=== PATIENT | male | born 1945 | race Caucasian/White ===

== ENCOUNTER → 2017-06-24 | Outpatient (CLI) | payer MEDICARE, BC ==
[~2017-06-24] MED LIST: ABILIFY2 MG ORAL; ACETAMINOPHEN650 M2 ORAL; BENZTROPINE MESY1 MG PO; DESONIDE59 ML TP; FLOMAX0.4 MG ORAL; KETOCONAZOLE15 GM TOP; KLONOPIN0.5 MG ORAL; LOMOTIL TABLET1 EACH ORAL; LORATADINE10 M2 PO; MILK OF MA400 MG/51 ORAL; PAROXETINE HCL20 MG PO; QUESTRAN POWDER4 GM ORAL; SARNA SENSITIV222 ML TP; TRAZODONE HCL50 MG PO; TRIHEXYPHEN2 MG/5 ML ORAL; TRIHEXYPHENIDYL2 MG ORAL; TUMS500 MG ORAL; VESICARE5 MG ORAL; VITAMIN D3-ALO1 EACH PO; ZOFRAN8 MG ORAL; [UNRECOGNIZED DRUG - OTHER] TP
[2017-06-24 14:16] LABS: EOSINOPHILS % (AUTO) 1.3 % (0.0-3.0); HEMOGLOBIN 14.2 G/DL (14.2-18.0); LYMPHOCYTES % (AUTO) 25.6 % (20.0-45.0); MEAN CORPUSCULAR VOLUME 97 FL (80-99); MONOCYTES % (AUTO) 10.8 % (1.0-10.0); NEUTROPHILS % (AUTO) 61.3 % (45.0-75.0); PLATELET COUNT 182 K/UL (150-450); RED BLOOD COUNT 4.14 M/UL (4.70-6.10)
[2017-06-24 14:55] LABS: ALANINE AMINOTRANSFERASE 36 U/L (12-78); ALBUMIN 3.4 G/DL (3.4-5.0); ALBUMIN/GLOBULIN RATIO 0.9 (1.0-2.7); ALKALINE PHOSPHATASE 74 U/L (46-116); ANION GAP 6 mmol/L (5-15); ASPARTATE AMINO TRANSFERASE 28 U/L (15-37); BLOOD UREA NITROGEN 21 mg/dL (7-18); CALCIUM 9.4 MG/DL (8.5-10.1); CARBON DIOXIDE 30 MMOL/L (21-32); CHLORIDE 104 MMOL/L (98-107); CREATININE 1.1 MG/DL (0.55-1.30); POTASSIUM 4.3 MMOL/L (3.5-5.1); SODIUM 140 MMOL/L (136-145)
--- NOTE | 2017-06-26 11:56 | Cardiology Report ---
APPROVED REPORT EKG Measurement Heart [id number] Normal sinus rhythm Right bundle branch block Left anterior fascicular block Bifascicular block Moderate voltage criteria for LVH, may be normal variant Abnormal ECG
== END | disposition home or self-care (01) ==
LOC: LAB 13:15
DX: R00.0 Tachycardia, unspecified (principal); I45.2 Bifascicular block
CPT/HCPCS: 36415; 80053; 84443; 85025; 93005

== ENCOUNTER 2017-09-12 13:24 | Outpatient (CLI) | payer MEDICARE, BC ==
[2017-09-12 14:26] LABS: APPEARANCE,URINE CLEAR; BILIRUBIN, URINE NEGATIVE (NEGATIVE); GLUCOSE, URINE (UA) NEGATIVE (NEGATIVE); HEMATOCRIT 43.1 % (42.0-52.0); HEMOGLOBIN 14.2 G/DL (14.2-18.0); KETONES,URINE NEGATIVE (NEGATIVE); LEUKOCYTE ESTERASE ,URINE 1+ (NEGATIVE); MEAN CORPUSCULAR VOLUME 96 FL (80-99); NITRITE,URINE NEGATIVE (NEGATIVE); PH,URINE 6 (4.5-8.0); PLATELET COUNT 160 K/UL (150-450); PROTEIN,URINE NEGATIVE (NEGATIVE); RED BLOOD COUNT 4.51 M/UL (4.70-6.10); RED CELL DISTRIBUTION WIDTH 10.9 % (11.6-14.8); UROBILINOGEN,URINE 1 MG/DL (0.0-1.0); WHITE BLOOD COUNT 5.8 K/UL (4.8-10.8)
--- NOTE | 2017-09-12 14:34 | Diagnostic Imaging Report ---
Indication: Cough Technique: XRAY Chest 2v Comparison: 05/09/2012 Findings: Heart size and mediastinal contours within normal limits and stable compared to the prior exam. There is no focal airspace consolidation, pleural effusion or pneumothorax. There is mild scoliosis and degenerative change of the spine. No acute osseous abnormality. IMPRESSION: No radiographic evidence of acute cardiopulmonary disease. Specifically, no focal consolidation as questioned clinically.
[2017-09-12 14:42] LABS: ANION GAP 7 mmol/L (5-15); BLOOD UREA NITROGEN 17 mg/dL (7-18); CALCIUM 8.8 MG/DL (8.5-10.1); CARBON DIOXIDE 28 MMOL/L (21-32); CHLORIDE 103 MMOL/L (98-107); COLOR,URINE YELLOW; CREATININE 1.1 MG/DL (0.55-1.30); POTASSIUM 4.2 MMOL/L (3.5-5.1); SODIUM 138 MMOL/L (136-145)
[2017-09-13] MEDS ORDERED: UNOBMED (13:04)
== END 2017-09-12 15:24 | disposition home or self-care (01) ==
LOC: RAD 13:24
DX: R00.0 Tachycardia, unspecified (principal)
CPT/HCPCS: 36415; 71046; 80048; 81001; 85007; 85025; 87086

== ENCOUNTER 2017-09-13 12:53 | Emergency (ER) | payer MEDICARE, BC ==
[~2017-09-13] VITALS: Ht 182.9 cm; Wt 101.6 kg
[2017-09-13] MEDS ORDERED: UNOBMED (13:04)
[2017-09-13 13:13] VITALS: BP 109/62
--- NOTE | 2017-09-13 14:17 | Emergency Room Report ---
History of Present Illness General Chief Complaint: Upper Respiratory Illness Source: Patient Present Illness HPI This patient c/o 5-6 days of viral URI symptoms including sore throat, rhinitis , nasal congestion, non productive cough. Malaise, myalgias, possibly tactile fever. The patient has no vomiting, chest pain or SOB. No travel history, leg pain/swelling. Was here yesterday for same. He is an anxious person. No trauma, no fever, no shortness of breath, no chest pain, no nausea, no vomiting, no diarrhea, no abdominal pain, no syncope, LOC, dizziness, lightheadedness, headache. Allergies: Coded Allergies: SULFA (SULFONAMIDE ANTIBIOTICS) (Verified Allergy, Unknown, 12/03/15) Review of Systems Constitutional: Denies: fever Eye: Denies: acuity changes ENT: Reports: see HPI Respiratory: Denies: cough, shortness of breath Cardiovascular: Denies: chest pain Gastrointestinal: Denies: nausea, vomiting Skin: Denies: rash Neurological: Denies: headache Physical Exam Vital Signs Date Time Temp Pulse Resp B/P (MAP) Pulse Ox O2 Delivery O2 Flow Rate FiO2 09/13/17 13:00 99.2 94 18 118/71 93 Room Air 99.1 General Appearance: well appearing, no apparent distress Head: normocephalic, atraumatic ENT: hearing grossly normal, normal voice Neck: full range of motion, supple Respiratory: no respiratory distress, speaking full sentences Musculoskeletal: no calf tenderness Neurologic: alert, normal gait Psychiatric: mood/affect normal Skin: no rash Medical Decision Making Diagnostic Impression: Primary Impression: Upper respiratory infection ER Course advised to use OTC Robitussin DM CXR yesterday negative. no abnorm on PE today Last Vital Signs Date Time Temp Pulse Resp B/P (MAP) Pulse Ox O2 Delivery O2 Flow Rate FiO2 09/13/17 13:13 99.1 87 25 109/62 95 Room Air 99.1 Disposition: HOME, SELF-CARE Condition: Stable Referrals: NON PHYSICIAN (PCP) Patient Instructions: Upper Respiratory Infection, Adult Nilesh Reyes M.D. Sep 13, 2017 14:17
[2017-09-13 14:48] VITALS: BP 124/66
[2017-09-13 15:00] VITALS: BP 124/66
== END 2017-09-13 15:08 | disposition home or self-care (01) ==
LOC: EMR 13:40
DX: J06.9 Acute upper respiratory infection, unspecified (principal); Z88.2 Allergy status to sulfonamides
CPT/HCPCS: 99282

== ENCOUNTER → 2018-01-20 | Outpatient (CLI) | payer MEDICARE, BC ==
[~2018-01-20] MED LIST changes: +BENZTROPINE ME0.5 MG PO; +UNOBMED
[2018-01-20 15:56] LABS: BASOPHILS % (AUTO) 0.8 % (0.0-2.0); EOSINOPHILS % (AUTO) 1.8 % (0.0-3.0); HEMATOCRIT 41.9 % (42.0-52.0); HEMOGLOBIN 14.4 G/DL (14.2-18.0); MEAN CORPUSCULAR VOLUME 93 FL (80-99); MONOCYTES % (AUTO) 8.4 % (1.0-10.0); PLATELET COUNT 210 K/UL (150-450); RED BLOOD COUNT 4.51 M/UL (4.70-6.10); RED CELL DISTRIBUTION WIDTH 10.8 % (11.6-14.8); WHITE BLOOD COUNT 7.1 K/UL (4.8-10.8)
[2018-01-20 15:58] LABS: ANION GAP 7 mmol/L (5-15); BLOOD UREA NITROGEN 19 mg/dL (7-18); CALCIUM 9.4 MG/DL (8.5-10.1); CARBON DIOXIDE 30 MMOL/L (21-32); CHLORIDE 104 MMOL/L (98-107); CREATININE 1.1 MG/DL (0.55-1.30); POTASSIUM 4.5 MMOL/L (3.5-5.1); SODIUM 141 MMOL/L (136-145)
== END | disposition home or self-care (01) ==
LOC: LAB 15:10
DX: F42.2 Mixed obsessional thoughts and acts (principal)
CPT/HCPCS: 36415; 80048; 85025; 93005

== ENCOUNTER 2018-05-10 07:43 | Inpatient (IN) | payer MEDICARE, BC ==
[~2018-05-10] VITALS: Ht 180.3 cm; Wt 92.1 kg
[~2018-05-10 07:43] MED LIST changes: +ADVANCED ANTAC355 ML ORAL; +ALEVE220 M2 PO; +ASPERCREME 1035.4 GM TP; +ATROPINE SULFAT15 ML RIGHT EYE; +EUCERIN CREAM15 GM TOPIC; +LOPERAMIDE2 M1 PO; +ROBAFEN-DM SYR118 ML PO; +VITAMIN D1000 UNI1 ORAL
[2018-05-10 08:00] VITALS: BP 116/71
--- NOTE | 2018-05-10 08:00 | NUR ---
ED Nurse Note: pt walked in to ER due to prolong period of diarrhea. pt is scheduled for coloscopy tomorrow. pt aao x4 and skin clean and intact. per pt, he has had N/V/D for a couple of months but getting better. N/V stopped a month ago and last diarrhea was 3 days ago. currently pt denied pain. VSS.
--- NOTE | 2018-05-10 08:04 | Emergency Room Report ---
History of Present Illness General Chief Complaint: Diarrhea Source: Patient, Medical Record Present Illness HPI Patient has a history of OCD and GERD. Patient has been experiencing severe diarrhea over last couple weeks. He is associated some abdominal discomfort and cramping. Patient denies any fever chest pain or shortness of breath. Patient does have a caregiver. Patient presents emergency department as referral from the primary care physician for evaluation and admission. Is felt the patient might require colonoscopy. Symptoms noted to be moderate to severe.No other modifying factors. No other associated signs and symptoms. No other complaints were noted. Allergies: Coded Allergies: SULFA (SULFONAMIDE ANTIBIOTICS) (Verified Allergy, Unknown, 12/03/15) Patient History Past Medical History: GERD, psych hx Past Surgical History: none Pertinent Family History: none Social History: Denies: smoking, alcohol use, drug use Reviewed Nursing Documentation: PMH: Agreed; PSxH: Agreed Nursing Documentation-PMH Past Medical History: No History, Except For Hx Gastrointestinal Problems: Yes - GERD History Of Psychiatric Problem: Yes Review of Systems All Other Systems: negative except mentioned in HPI Physical Exam Vital Signs Date Time Temp Pulse Resp B/P (MAP) Pulse Ox O2 Delivery O2 Flow Rate FiO2 05/10/18 07:45 98.1 87 18 116/71 98 Room Air Sp02 EP Interpretation: reviewed, normal General Appearance: normal inspection, well appearing, no apparent distress, alert Head: atraumatic Eyes: bilateral eye normal inspection ENT: normal ENT inspection, hearing grossly normal, normal voice Neck: normal inspection, full range of motion, supple, no bony tend Respiratory: normal inspection, lungs clear, normal breath sounds, no respiratory distress, no retraction, no wheezing Cardiovascular #1: regular rate, rhythm, no edema Gastrointestinal: normal inspection, normal bowel sounds, non tender, soft, no guarding, no hernia Genitourinary: no CVA tenderness Musculoskeletal: normal inspection, back normal, normal range of motion Neurologic: normal inspection, alert, responsive, speech normal Psychiatric: normal inspection, judgement/insight normal, mood/affect normal Skin: normal inspection, normal color, no rash Medical Decision Making Diagnostic Impression: Primary Impression: Abdominal pain Additional Impression: Diarrhea ER Course Patient presents emergency department today complaint 2 weeks of worsening diarrhea. Differential considerations include a electrolyte abnormality, colitis, infectious etiology just name a few.Given the severity of the patient' s presentation I felt this is a highly complex patient. This patient required extensive workup. Is laboratory workup was not impressive. However given patient's trunk symptoms case was discussed with Dr. Mina Nix who knows the patient well. He recommended patient be admitted. And evaluated by GI physician Dr. Godfrey. Dr. Godfrey saw the patient in emergency department. We'll admit patient to [facility] per primary care physician and GI specialist request. We'll obtain preop laboratory results.As patient will likely require colonoscopy. Labs Test 05/10/18 08:10 05/10/18 08:40 White Blood Count 6.1 K/UL (4.8-10.8) Red Blood Count 3.90 M/UL (4.70-6.10) Hemoglobin 12.6 G/DL (14.2-18.0) Hematocrit 37.3 % (42.0-52.0) Mean Corpuscular Volume 96 FL (80-99) Mean Corpuscular Hemoglobin 32.1 PG (27.0-31.0) Mean Corpuscular Hemoglobin Concent 33.6 G/DL (32.0-36.0) Red Cell Distribution Width 11.4 % (11.6-14.8) Platelet Count 231 K/UL (150-450) Mean Platelet Volume 5.4 FL (6.5-10.1) Neutrophils (%) (Auto) 63.6 % (45.0-75.0) Lymphocytes (%) (Auto) 21.5 % (20.0-45.0) Monocytes (%) (Auto) 11.3 % (1.0-10.0) Eosinophils (%) (Auto) 2.3 % (0.0-3.0) Basophils (%) (Auto) 1.3 % (0.0-2.0) Prothrombin Time 10.9 SEC (9.30-11.50) Prothromb Time International Ratio 1.0 (0.9-1.1) Activated Partial Thromboplast Time 29 SEC (23-33) Sodium Level 140 MMOL/L (136-145) Potassium Level 4.0 MMOL/L (3.5-5.1) Chloride Level 103 MMOL/L (98-107) Carbon Dioxide Level 27 MMOL/L (21-32) Anion Gap 10 mmol/L (5-15) Blood Urea Nitrogen 20 mg/dL (7-18) Creatinine 1.1 MG/DL (0.55-1.30) Estimat Glomerular Filtration Rate mL/min (>60) Glucose Level 97 MG/DL (74-106) Calcium Level 9.4 MG/DL (8.5-10.1) Total Bilirubin 0.9 MG/DL (0.2-1.0) Aspartate Amino Transf (AST/SGOT) 14 U/L (15-37) Alanine Aminotransferase (ALT/SGPT) 22 U/L (12-78) Alkaline Phosphatase 80 U/L (46-116) Total Protein 7.0 G/DL (6.4-8.2) Albumin 3.2 G/DL (3.4-5.0) Globulin 3.8 g/dL Albumin/Globulin Ratio 0.8 (1.0-2.7) Lipase 66 U/L (73-393) Urine Color Pale yellow Urine Appearance Clear Urine pH 5 (4.5-8.0) Urine Specific [place] 1.015 (1.005-1.035) Urine Protein Negative (NEGATIVE) Urine Glucose (UA) Negative (NEGATIVE) Urine Ketones Negative (NEGATIVE) Urine Blood Negative (NEGATIVE) Urine Nitrite Negative (NEGATIVE) Urine Bilirubin Negative (NEGATIVE) Urine Urobilinogen Normal MG/DL (0.0-1.0) Urine Leukocyte Esterase Negative (NEGATIVE) EKG Diagnostic Results Rate: normal Rhythm: NSR ST Segments: no acute changes Rhythm Strip Diag. Results EP Interpretation: yes Rate: 79 Rhythm: NSR, no PVC's, no ectopy Last Vital Signs Date Time Temp Pulse Resp B/P (MAP) Pulse Ox O2 Delivery O2 Flow Rate FiO2 05/10/18 07:45 98.1 87 18 116/71 98 Room Air Status: improved Disposition: ADMITTED INPATIENT Condition: Serious Damon Cardona MD May 10, 2018 08:04
--- NOTE | 2018-05-10 08:20 | NUR ---
ED Nurse Note: Dr Nix called ER and spoke to Dr Cardona regarding the pt's status and admitting request.
[2018-05-10 08:26] LABS: BASOPHILS % (AUTO) 1.3 % (0.0-2.0); EOSINOPHILS % (AUTO) 2.3 % (0.0-3.0); HEMATOCRIT 37.3 % (42.0-52.0); HEMOGLOBIN 12.6 G/DL (14.2-18.0); LYMPHOCYTES % (AUTO) 21.5 % (20.0-45.0); MEAN CORPUSCULAR VOLUME 96 FL (80-99); MONOCYTES % (AUTO) 11.3 % (1.0-10.0); NEUTROPHILS % (AUTO) 63.6 % (45.0-75.0); PLATELET COUNT 231 K/UL (150-450); RED CELL DISTRIBUTION WIDTH 11.4 % (11.6-14.8); WHITE BLOOD COUNT 6.1 K/UL (4.8-10.8)
[2018-05-10] MEDS ORDERED: mylanta (08:29)
[2018-05-10] MEDS ORDERED: SARNA ANTI-ITC222 ML TP (08:29)
[2018-05-10] MEDS ORDERED: ASPERCREME 1035.4 GM TP (08:29)
[2018-05-10] MEDS ORDERED: ALEVE220 M2 PO (08:29)
--- NOTE | 2018-05-10 08:30 | NUR ---
ED Nurse Note: Pt and Kay at bedside was informed that pt will be transferred to [facility] unit when room is available and belonging list was signed by pt.
[2018-05-10 08:31] LABS: ANION GAP 10 mmol/L (5-15); BLOOD UREA NITROGEN 20 mg/dL (7-18); CALCIUM 9.4 MG/DL (8.5-10.1); CARBON DIOXIDE 27 MMOL/L (21-32); CHLORIDE 103 MMOL/L (98-107); CREATININE 1.1 MG/DL (0.55-1.30); SODIUM 140 MMOL/L (136-145)
[2018-05-10 08:37] LABS: ALANINE AMINOTRANSFERASE 22 U/L (12-78); ALBUMIN 3.2 G/DL (3.4-5.0); ALBUMIN/GLOBULIN RATIO 0.8 (1.0-2.7); ALKALINE PHOSPHATASE 80 U/L (46-116); ASPARTATE AMINO TRANSFERASE 14 U/L (15-37); BILIRUBIN,TOTAL 0.9 MG/DL (0.2-1.0)
[2018-05-10 08:58] LABS: APPEARANCE,URINE CLEAR; BILIRUBIN, URINE NEGATIVE (NEGATIVE); COLOR,URINE PALE YELLOW; GLUCOSE, URINE (UA) NEGATIVE (NEGATIVE); KETONES,URINE NEGATIVE (NEGATIVE); LEUKOCYTE ESTERASE ,URINE NEGATIVE (NEGATIVE); NITRITE,URINE NEGATIVE (NEGATIVE); PH,URINE 5 (4.5-8.0); PROTEIN,URINE NEGATIVE (NEGATIVE); UROBILINOGEN,URINE NORMAL MG/DL (0.0-1.0)
--- NOTE | 2018-05-10 09:20 | NUR ---
ED Nurse Note: Kay left and pt started getting anxious. pt is calling somebody and yelling. will monitor for behavior. pt stated "No one cares about me!!" pt was redirected to the reality.
--- NOTE | 2018-05-10 09:50 | NUR ---
ED Nurse Note: Pt's ex- called and yelled at nurse as stating "How come nobody told him what's going on and where he is? he is so anxious!" Nurse explained to ex- that pt was told and updated for his status and he verbalized understanding. He became anxious and started saying "Everyone left me and nobody cares about me." The ex- yelled and verbally aggressive toward nurse. she calm down little bit after getting explained and hung up.
[2018-05-10 10:00] VITALS: BP 112/78
--- NOTE | 2018-05-10 10:10 | NUR ---
ED Nurse Note: Attempted to give report. nurse was not available. will try again.
--- NOTE | 2018-05-10 10:20 | NUR ---
ED Nurse Note: attempted to give report. nurse is not available at this moment. will try again.
--- NOTE | 2018-05-10 10:47 | NUR ---
ED Nurse Note: report given to STEPHANIA Pritchard including medication Clenpiq to drink for colonoscopy tomorrow. pt left with belongings and Clenpiq in stable condition with [address].
[2018-05-10 12:00] VITALS: BP 108/76
[2018-05-10] MEDS ORDERED: Potassium Chloride 10 MEQ in D5 1/2NS 1,000 ML IV SCH (12:00)
[2018-05-10] MEDS ORDERED: TraZODone 50mg tab ORAL PRN (14:00)
[2018-05-10] MEDS: D5 1/2NS 1,000 ML IV SCH ×3 (14:09→18:30)
[2018-05-10] MEDS: CLENPIQ ORAL SCH ×2 (14:26→21:31)
--- NOTE | 2018-05-10 15:00 | NUR ---
NURSE NOTES: RECEIVED ORDERS FROM DR ALAMO. READ ALL MEDICATIONS AND CONFIRMED WITH DR ALAMO TO CONTINUE HOME MEDS. PT IS FORGETFUL. HAS EX- [employer] CONSERVATOR. WILL FAX CONSERVATOR PAPERWORK. RN EDUCATED CONSERVATOR REGARDING DR ROCHA'S ORDERS AND AGREED TO EGD AND COLONOSCOPY WITH POSSIBLE BIOPSY, POLYPECTOMY, AND HEMOSTASIS.
[2018-05-10 16:00] VITALS: BP 114/83
--- NOTE | 2018-05-10 16:40 | History & Physical ---
History and Physical History & Physicial Patient Identification: Patient with several months of increased gastrointestinal symptoms. Outpatient evaluation by Dr. Godfrey unremarkable. Because of constant c/o GERD symptoms and diarrhea with cramps, patient admitted for further evaluation. History of Present Illness: Mr. Dill is a 72-year-old gentleman who has had increasing complaints of abdominal cramping and recurrent diarrhea over the last several months. Initial evaluation failed to reveal specific etiology but because of the persistence of the symptoms the patient was referred to Dr. Anthony Godfrey. Once again outpatient workup was not revealing as to the etiology of the patient 's symptoms and therefore the patient was admitted for further evaluation and treatment. The patient does have a history of significant psychiatric disease including anxiety and obsessive-compulsive disorder. In the past, he has had episodes of stool incontinence and loose stools with prior negative gastrointestinal evaluation, leading to the consideration of a functional disorder. However he is not undergone colonoscopy for approximately 5 years or more and given the severity of his symptoms it is felt that more aggressive evaluation was warranted at this time. It is difficult to obtain a detailed history from Mr. Dill, because his obsessive-compulsive disorder and anxiety leading him to tangential and circumloquacious responses. However he is catalog of symptoms includes recurrent nausea, abdominal cramping in all quadrants of the abdomen, and recurrent diarrhea with episodes of stool incontinence. However an accurate timeline or quantification is not available. Likewise because Mr. Dill is a fairly independent resident and his RCFE, the staff there is not fully able to describe what his functional status is, since he performs a lot of his activities independently and then reports the results to the staff. When seen today, Mr. Dill is lying without apparent distress in bed. He is spontaneously launches into his left knee of complaints and a repetitive description of his multiple symptoms and concerns. Past Medical History: 1. Mild cognitive impairment with element of pseudodementia associated with underlying psychiatric disease. 2. Major depression, anxiety, obsessive-compulsive disorder with a possible component of underlying psychosis. 3. History of possible full functional gastrointestinal disorder. 4. History of borderline hepatomegaly. 5. History of colonic tubular adenoma in the transverse colon. 6. Hyperlipidemia. 7. 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 8. History of prostatism. 9. Gait disorder with broad-based gait. 10. History of bilateral knee surgery. Medications: 1. Abilify 2 mg daily. 2. Cogentin 1 mg daily. 3. Paxil 40 mg daily. 4. Tamsulosin 0.4 mg nightly. 5. Trazodone 50 mg nightly as needed. 6. Vesicare 5 mg every evening. 7. Vitamin D3 2000 units daily. 8. Clonazepam 0.25 milligrams twice daily. 9. Potassium chloride 20 mEq every other day. 10. Acetaminophen 650 mg every 3 hours as needed. 11. Calcium carbonate 500 mg 2 tablets 4 times daily as needed. 12. Lomotil 1 tablet 3 times daily as needed. 13. Loratadine 10 mg daily as needed. 14. Ondansetron 8 mg every 8 hours as needed. 15. Mylanta 30 mL 4 times daily as needed. Allergies: Reportedly to sulfonamides. 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 He was practicing until the time he experienced a psychiatric decompensation which required hospitalization. His ex -spouse is his conservator and surrogate decision-maker. He has 2 children. He lives at the [facility]. There is no significant tobacco or alcohol use history. Family History: Family history of obsessive compulsive disorder. Review of Systems: Detailed review of systems is not possible because of the patient's psychiatric disease. He complains of pain throughout his body including the limbs and the abdomen but has difficulty specifying the exact location and severity. He denies respiratory difficulties at this time. He does not have symptoms suggesting chest pain associated with cardiac disease or palpitations. He complains of nausea and recurrent abdominal cramping again with difficulty specifying the details. Physical Examination: Height 180 cm, weight 92.9 kg. Blood pressure 114/83, heart rate 73 and regular, respiratory rate 20, oxygen saturation 98% on room air, temperature 97.7. Generally patient is a well-developed well-nourished gentleman not in apparent distress speaking rapidly with restorations of his various concerns. Head and neck exam: Normocephalic atraumatic skull sclera and conjunctive are anicteric oropharynx is benign. Neck reveals normal range of motion with no apparent mass. Chest exam: Normal breath sounds. Cardiac exam: Regular rhythm without gallops murmurs or rubs appreciated. Abdominal exam: Normal bowel sounds. The abdomen is soft and nontender without masses or organomegaly appreciated. Extremity exam: Trace distal dependent edema without cords. Neurologic exam: Follows commands. No definite focality noted. Gait not tested. Mental status compatible with baseline. Laboratory: WBC 6.1 hematocrit 37.3% MCV 96 platelet count 231. INR 1.0 PTT 29 sodium 140 potassium 4.0 chloride 103 bicarb 27 BUN 20 creatinine 1.1 glucose 97 calcium 9.4 total bilirubin 0.9 AST 14 ALT 22 alkaline phosphatase 80 total protein 7.0 albumin 3.2 lipase 66. Urinalysis unremarkable. Impression/Plan: 1. Mr. Rivera is initial examination and laboratory studies are unremarkable. He has been seen as an outpatient by Dr. Elver Cuellar, and cleared from a cardiologic point of view. 2. Recurrent complaints of abdominal cramping and diarrhea along with nausea may well be functional but given the persistence and severity the patient will be evaluated by Dr. Godfrey, who is indicated he is likely to proceed with endoscopy and colonoscopy to rule out an anatomic lesion. As a result the patient will be placed on clear liquids and then kept n.p.o. after midnight and hydrated with IV fluids. 3. Additional evaluation will be pursued depending on the patient's symptomatology and additional findings on examination. 4. Situation has been discussed with Maritza patient's ex-spouse and conservator , who agrees with the current approach. Mina Nix MD May 10, 2018 16:40
[2018-05-10] MEDS ORDERED: clonazePAM 0.5mg tab ORAL SCH (17:00)
[2018-05-10] MEDS: clonazePAM 0.5mg tab ORAL SCH (17:43)
[2018-05-10] MEDS ORDERED: Ondansetron ODT 8mg tab ORAL PRN (17:45)
--- NOTE | 2018-05-10 19:03 | NUR ---
HAND-OFF: Report given to Chayito FRITZ RN.
--- NOTE | 2018-05-10 19:16 | General Progress Note ---
Assessment/Plan Assessment/Plan Assessment - Poor historian/psych d/o - Mild anemia with mild Iron deficiency - Self reported symptoms of N/V, Diarrhea, GERD - negative outpatient stool studies Recommendations - IVF - GI Prep - EGD/Colon in am Thank you Anthony Godfrey MD Subjective Allergies: Coded Allergies: SULFA (SULFONAMIDE ANTIBIOTICS) (Verified Allergy, Unknown, 12/03/15) Objective Last 24 Hour Vital Signs Date Time Temp Pulse Resp B/P (MAP) Pulse Ox O2 Delivery O2 Flow Rate FiO2 05/10/18 16:00 97.7 73 20 114/83 (93) 98 05/10/18 15:33 Room Air 05/10/18 12:00 97.5 62 15 108/76 (87) 96 05/10/18 10:45 98.1 71 18 116/73 100 Room Air 05/10/18 10:00 98.0 71 17 112/78 96 Room Air 05/10/18 08:00 98.1 72 18 116/71 98 Room Air 05/10/18 07:45 98.1 87 18 116/71 98 Room Air Laboratory Tests 05/10/18 08:10: White Blood Count 6.1, Red Blood Count 3.90L, Hemoglobin 12.6L, Hematocrit 37.3L , Mean Corpuscular Volume 96, Mean Corpuscular Hemoglobin 32.1H, Mean Corpuscular Hemoglobin Concent 33.6, Red Cell Distribution Width 11.4L, Platelet Count 231, Mean Platelet Volume 5.4L, Neutrophils (%) (Auto) 63.6, Lymphocytes (%) (Auto) 21.5, Monocytes (%) (Auto) 11.3H, Eosinophils (%) (Auto) 2.3, Basophils (%) (Auto) 1.3, Prothrombin Time 10.9, Prothromb Time International Ratio 1.0, Activated Partial Thromboplast Time 29, Sodium Level 140, Potassium Level 4.0, Chloride Level 103, Carbon Dioxide Level 27, Anion Gap 10, Blood Urea Nitrogen 20H, Creatinine 1.1, Estimat Glomerular Filtration Rate , Glucose Level 97, Calcium Level 9.4, Total Bilirubin 0.9, Aspartate Amino Transf (AST/SGOT) 14L, Alanine Aminotransferase (ALT/SGPT) 22, Alkaline Phosphatase 80, Total Protein 7.0, Albumin 3.2L, Globulin 3.8, Albumin/Globulin Ratio 0.8L, Lipase 66L 05/10/18 08:40: Urine Color Pale yellow, Urine Appearance Clear, Urine pH 5, Urine Specific [place] 1.015, Urine Protein Negative, Urine Glucose (UA) Negative, Urine Ketones Negative, Urine Blood Negative, Urine Nitrite Negative, Urine Bilirubin Negative, Urine Urobilinogen Normal, Urine Leukocyte Esterase Negative Height (Feet): 5 Height (Inches): 11.00 Weight (Pounds): 205 Anthony Godfrey MD May 10, 2018 19:16
[2018-05-10 20:00] VITALS: BP 118/80
--- NOTE | 2018-05-10 20:47 | NUR ---
NURSE NOTES: Received patient awake,verbal,follows simple command,forgetful,resting in bed ,comfortable.
[2018-05-10] MEDS ORDERED: Tamsulosin 0.4mg cap ORAL SCH (21:00)
--- NOTE | 2018-05-10 23:45 | Consultation ---
DATE OF CONSULTATION: 05/10/2018 GASTROENTEROLOGY CONSULTATION CONSULTING PHYSICIAN: Anthony Godfrey M.D. CHIEF COMPLAINT: I was asked to see this patient by Dr. Mina Nix for evaluation of gastrointestinal symptoms. HISTORY OF PRESENT ILLNESS: The patient is a 72-year-old white man with a past psychiatric history who was brought to the hospital due to ongoing symptoms of nausea, vomiting, and diarrhea. The patient's history is somewhat questionable. He does complain of ongoing diarrhea measured about 4 to 5 times a day. He also complains of stool incontinence and some abdominal discomfort diffusely. He has periods of nausea and vomiting. He states that he had a colonoscopy about 5 years ago, but he is unaware of the details of who and where it was done. He has had no recent trips or exposures or contacts with similar illnesses. He was seen as an outpatient where comprehensive stool panel was done, which was negative for any significant infectious pathology. In addition, the course of Cipro and Flagyl was given, which was ineffective resolving the patient's symptoms. The patient is admitted for these symptoms and he is to undergo endoscopy and colonoscopy tomorrow. PAST MEDICAL HISTORY: History of psychiatric disorder, history of functional diarrheal syndrome, but the details are not clear. PAST SURGICAL HISTORY: Status post bilateral knee surgery, history of tonsillectomy. ALLERGIES: Sulfa. FAMILY HISTORY: Positive for pernicious anemia. SOCIAL HISTORY: The patient is . He has two children. He does not smoke and does not drink. 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 REVIEW OF SYSTEMS: Otherwise negative. MEDICATIONS: See the chart list for details. PHYSICAL EXAMINATION: GENERAL: A pleasant white man, seen in the emergency room. HEENT: Normocephalic and atraumatic. Sclerae are anicteric. Oropharynx clear. NECK: Supple. CHEST: Clear to auscultation. CARDIOVASCULAR: Revealed a regular rate. ABDOMEN: Soft. Good bowel sounds. EXTREMITIES: Revealed no edema. LABORATORY DATA: Laboratory data were reviewed. ASSESSMENT: This patient has ongoing nausea, vomiting, and diarrhea, although the exact details of these symptoms and the accuracy is admittedly questionable. Nonetheless, the patient does have a degree of iron deficiency and mild anemia at his outpatient laboratory parameters. Based on that alone, he should undergo endoscopy and colonoscopy to evaluate the upper and lower gastrointestinal tract. The indications and risks of the procedure including, but not limited to bleeding, infection, perforation, , and anesthesia complications were explained both to the patient as well his ex- and informed consent was obtained. RECOMMENDATIONS: 1. Keep the patient NPO. 2. IV fluids. 3. Gastrointestinal tract preparation. 4. Endoscopy and colonoscopy tomorrow. Thank you for asking me to participate in the care of this patient. Anthony Godfrey M.D. DR: LOGAN JOB#: [id number] CC: TIO
[2018-05-11] VITALS (10 sets, daily range): BP systolic 108–130; BP diastolic 65–75
[2018-05-11] MEDS: D5 1/2NS 1,000 ML IV SCH (04:50)
--- NOTE | 2018-05-11 07:30 | NUR ---
nurse notes received patient in bed no sign of distress, denies pain , but very agitated, regarding his wallet, explained patient will take care of it, on NPO for procedure, v/s stable and afebrile, plan of care was discussed needs reinforcement [facility]
--- NOTE | 2018-05-11 07:33 | NUR ---
HAND-OFF: Report given to Mery Braxton RN.
--- NOTE | 2018-05-11 08:34 | NUR ---
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
[2018-05-11] MEDS ORDERED: Vitamin D 1000 IU Tab ORAL SCH (09:00)
[2018-05-11] MEDS ORDERED: PARoxetine 20mg tab ORAL SCH (09:00)
[2018-05-11] MEDS ORDERED: ARIPiprazole 2mg tab ORAL SCH (09:00)
[2018-05-11] MEDS ORDERED: Benztropine 1mg tab ORAL SCH (09:00)
[2018-05-11] MEDS ORDERED: Lidocaine 1% MPF 10mg/ml 5ml ONE (10:00)
[2018-05-11] MEDS ORDERED: Propofol 200mg/20ml IV ONE (10:00)
[2018-05-11] MEDS ORDERED: Midazolam 2mg/2ml Inj IVP PRN (10:15)
[2018-05-11] MEDS ORDERED: DiphenhydrAMINE 50mg/ml Inj IVP PRN (10:15)
[2018-05-11] MEDS ORDERED: Atropine Inj 1mg/10ml Syr IV PRN (10:15)
[2018-05-11] MEDS ORDERED: fentaNYL 100 mcg/2 mL IV PRN (10:15)
--- NOTE | 2018-05-11 10:17 | Pre-Procedure Note/Attestation ---
Pre-Procedure Note/Attestation Complete Prior to Procedure Planned Procedure: not applicable Procedure Narrative: esophagogastroduodenoscopy colonoscopy Indications for Procedure Pre-Operative Diagnosis: anemia, diarrhea, vomiting Attestation I attest that I discussed the nature of the procedure; its benefits; risks and complications; and alternatives (and the risks and benefits of such alternatives ), prior to the procedure, with the patient (or the patient's legal financial services sales representative). I attest that, if there was a reasonable possibility of needing a blood transfusion, the patient (or the patient's legal financial services sales representative) was given the [facility] standardized written summary, pursuant to the Michael Jessica Blood Safety Act ([place] Health and Safety Code # 1645, as amended). I attest that I re-evaluated the patient just prior to the surgery and that there has been no change in the patient's H&P, except as documented below: Anthony Godfrey MD May 11, 2018 10:17
[2018-05-11] MEDS ORDERED: NS 500ML IVPB ONE (10:20)
--- NOTE | 2018-05-11 10:39 | Anethesia Preoperative Eval ---
Anesthesia Pre-op PMH/ROS General Date of Evaluation: May 11, 2018 Time of Evaluation: 10:00 Anesthesiologist: thu ASA Score: ASA 2 Mallampati Score Class I : Soft palate, uvula, fauces, pillars visible Class II: Soft palate, uvula, fauces visible Class III: Soft palate, base of uvula visible Class IV: Only hard plate visible Mallampati Classification: Class II Surgeon: shanice Diagnosis: abdominal pain Surgical Procedure: egd/colonoscopy Anesthesia History: none Social History: smoking - nonsmoker Family History: no anesthesia problems Allergies: Coded Allergies: SULFA (SULFONAMIDE ANTIBIOTICS) (Verified Allergy, Unknown, 12/03/15) Medications: see eMAR Patient NPO?: Yes Past Medical History Gastrointestinal/Genitourinary: Reports: other Anesthesia Pre-op Phys. Exam Physician Exam Last Vital Signs Date Time Temp Pulse Resp B/P (MAP) Pulse Ox O2 Delivery O2 Flow Rate FiO2 05/11/18 08:00 Room Air 05/11/18 08:00 98.0 71 18 113/75 (88) 100 Constitutional: NAD Neurologic: CN 2-12 intact Cardiovascular: RRR Respiratory: CTA Gastrointestinal: S/NT/ND Airway Exam Mallampati Score: Class II MO: limited Neck: flexible TMD: 2fb ROM: limited Anesthesia Pre-op A/P Risk Assessment & Plan Assessment: asa2 Plan: mac Status Change Before Surgery: No Pre-Antibiotics Drug: Sherry Post MD May 11, 2018 10:38
--- NOTE | 2018-05-11 11:10 | Endoscopy Procedure Note ---
Endoscopy Procedure Note General Indication for Procedure: anemia, diarrhea, vomit Procedures Performed: EGD, colonoscopy Operative Findings/Diagnosis: see next report Specimen: yes Pt Tolerated Procedure Well: Yes Estimated Blood Loss: none Anesthesia Anesthesiologist: Isaiah Barrera Anesthesia: MAC Medications Medication Given: see anesthesia record Inserted Devices Implant(s) used?: No Quality Quality of Bowel Preparation: Excellent Did scope reach the cecum?: Yes GI Core Measures 50 yrs or older w/o bx or poly: No 10yrs. F/U not recommended: No If not recommended, why?: Above average risk 10 yrs. F/U needed: No 18 years or older w/prev. colo: No <3yrs. since last colonoscopy: No Med reason:<3 yrs.: System Reason:<3 yrs.: Last colonoscopy >= to 3yrs: Yes Anthony Godfrey MD May 11, 2018 11:10
--- NOTE | 2018-05-11 11:15 | Brief Operative Note ---
Immediate Post Operative Note Operative Note Chief Complaint: N/v, diarrhea, anemia Pre-op Diagnosis: anemia, diarrhea, vomiting Procedure: EGD/colon Post-op Diagnosis: EGD: - Bile reflux - mild proximal non erosive gastritis - mild erosion at GE Junction, c/w GERD - s/p Bx of duodenum, antrum, body, fundus, GE Junction, mid esoph COLON: - Normal Terminal ileum - rare (L) sided diverticulosis - Polyp distal ascending colon (hot snare), #2 distal ascending colon (bx), and rectum (cold snare, bx) - s/p Random bx of terminal ileum, R colon, L colon, and rectum External: - stage II-III focal decub ulcer over coccyx Surgeon: shanice Anesthesiologist: Isaiah Barrera Anesthesia: MAC Specimen: yes Complications: none Condition: stable Fluids: As recorded Estimated Blood Loss: none Drains: none Implant(s) used?: No Anthony Godfrey MD May 11, 2018 11:15
--- NOTE | 2018-05-11 11:19 | General Progress Note ---
Assessment/Plan Assessment/Plan Assessment - Poor historian/psych d/o - Mild anemia with mild Iron deficiency - Self reported symptoms of N/V, Diarrhea, GERD - negative outpatient stool studies Recommendations - IVF - NPO - EGD/Colon today - resume po diet after above PROCEDURE FINDINGS: EGD: - Bile reflux - mild proximal non erosive gastritis - mild erosion at GE Junction, c/w GERD - s/p Bx of duodenum, antrum, body, fundus, GE Junction, mid esoph COLON: - Normal Terminal ileum - rare (L) sided diverticulosis - Polyp distal ascending colon (hot snare), #2 distal ascending colon (bx), and rectum (cold snare, bx) - s/p Random bx of terminal ileum, R colon, L colon, and rectum External: - stage II-III focal decub ulcer over coccyx ADDITIONAL RECS: - decubitus ulcer evaluation and Rx - per PMD - Zantac 300 mg po qhs - Resume po - d/c planning - outpatient f/u - repeat colonoscopy in 5 years Subjective Allergies: Coded Allergies: SULFA (SULFONAMIDE ANTIBIOTICS) (Verified Allergy, Unknown, 12/03/15) Subjective patient seen in GI lab (++) BM with Prep Objective Last 24 Hour Vital Signs Date Time Temp Pulse Resp B/P (MAP) Pulse Ox O2 Delivery O2 Flow Rate FiO2 05/11/18 08:00 Room Air 05/11/18 08:00 98.0 71 18 113/75 (88) 100 05/11/18 04:00 98.1 60 18 117/70 (86) 96 05/11/18 00:00 98.6 63 18 129/70 (89) 95 05/10/18 21:00 Room Air 05/10/18 20:00 98.2 74 18 118/80 (93) 94 05/10/18 16:00 97.7 73 20 114/83 (93) 98 05/10/18 16:00 Room Air 05/10/18 15:33 Room Air 05/10/18 12:00 97.5 62 15 108/76 (87) 96 Intake and Output 05/10/18 05/11/18 18:59 06:59 Intake Total 300 ml 1100 ml Balance 300 ml 1100 ml Intake Oral 0 ml IV Total 300 ml 1100 ml Height (Feet): 5 Height (Inches): 11.00 Weight (Pounds): 203 Objective NCAT supple CTA RRR soft NT ND no edema Anthony Godfrey MD May 11, 2018 11:19
--- NOTE | 2018-05-11 11:59 | NUR ---
nurse notes backed to room post procedure v/s stable, resumed all medication as ordered cameron Sutherland
[2018-05-11] MEDS: clonazePAM 0.5mg tab ORAL SCH ×2 (12:09→17:00)
[2018-05-11] MEDS ORDERED: ZANTAC300 MG ORAL (16:35)
--- NOTE | 2018-05-11 16:53 | Discharge Summary ---
Discharge Summary Discharge Summary _ Date of Admission: May 10, 2018. Date of Discharge: May 11, 2018. Discharge Diagnoses: 1. Gastroesophageal Reflux with GE junctional erosion. 2. Three colonic polyps, resected. 3. Pilonidal cyst with chronic pit. 4. Multifactorial gastrointestinal symptoms with functional component. 5. Mild cognitive impairment with element of pseudodementia associated with underlying psychiatric disease. 6. Major depression, anxiety, obsessive-compulsive disorder with a possible component of underlying psychosis. 7. History of borderline hepatomegaly. 8. History of colonic tubular adenoma in the transverse colon. 9. Hyperlipidemia. 10. 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 11. History of prostatism. 12. Gait disorder with broad-based gait. 13. History of bilateral knee surgery. Hospital Course: Mr. Dill was admitted with persistent gastrointestinal symptoms. Details of the history and physical examination are per the dictation of May 10, 2018 Mr. Dill was admitted and placed on intravenous fluids. He did not appear to have significant gastrointestinal symptoms overnight and through the subsequent day. There was diarrhea only consistent with the colonic cleanout done for colonoscopy. Subsequently he underwent upper endoscopy and colonoscopy with findings as noted above. Although there are findings of a gastritis gastric esophageal junctional erosion due to reflux polyps it is unclear if any of these findings are specifically associated with the symptoms on presentation. In any event post procedure patient did well without further symptoms and at this point appears stable for discharge to his [facility]. The pathologic findings of his biopsies will be followed up through Dr. Godfrey. The patient will be seen in the office for regular follow-up. His medications will remain the same except for the addition of a dose of Zantac nightly to ameliorate symptoms of reflux. Discharge Medications: 1. Abilify 2 mg daily. 2. Cogentin 1 mg daily. 3. Paxil 40 mg daily. 4. Tamsulosin 0.4 mg nightly. 5. Trazodone 50 mg nightly as needed. 6. Vesicare 5 mg every evening. 7. Vitamin D3 2000 units daily. 8. Clonazepam 0.25 milligrams twice daily. 9. Potassium chloride 20 mEq every other day. 10. Acetaminophen 650 mg every 3 hours as needed. 11. Calcium carbonate 500 mg 2 tablets 4 times daily as needed. 12. Lomotil 1 tablet 3 times daily as needed. 13. Loratadine 10 mg daily as needed. 14. Mylanta 30 mL 4 times daily as needed. 15. Zantac 300mg qhs. Mina Nix MD May 11, 2018 16:53
--- NOTE | 2018-05-11 17:44 | NUR ---
nurse notes seen by Dr Nix, with order noted and carried out discharge to boarding care obtained patient aware regarding plan of care discharge instruction packet handed to patient discharge instruction instructed to patient and healthcare translator all questions answered verbalized understandin discharged in stable condition with all belongings taken accompanied by healthcare translator discharged via private car [facility] [place]
--- NOTE | 2018-05-11 19:34 | Immediate Post-Op Evaluation ---
Immediate Post-Op Evalulation Immediate Post-Op Evalulation Procedure: egd/colonoscopy/bx Date of Evaluation: May 11, 2018 Time of Evaluation: 11:30 IV Fluids: 0.9ns 300ml Blood Products: none Estimated Blood Loss: negligible Blood Pressure Systolic: 108 Blood Pressure Diastolic: 65 Pulse Rate: 72 Respiratory Rate: 18 O2 Sat by Pulse Oximetry: 99 Temperature (Fahrenheit): 97.0 Pain Score (1-10): 0 Nausea: No Vomiting: No Complications none Patient Status: awake, reacts, patent Hydration Status: adequate Drug: Sherry Post MD May 11, 2018 19:34
--- NOTE | 2018-05-11 19:35 | 48 Hour Post Anesthesia Eval ---
Post Anesthesia Evaluation Procedure: egd/colonoscopy/bx Date of Evaluation: May 11, 2018 Time of Evaluation: 11:32 Blood Pressure Systolic: 121 0: 71 Pulse Rate: 73 Respiratory Rate: 18 Temperature (Fahrenheit): 97.0 O2 Sat by Pulse Oximetry: 99 Airway: patent Nausea: No Vomiting: No Pain Intensity: 0 Hydration Status: adequate Cardiopulmonary Status: stable Mental Status/LOC: patient returned to baseline Post-Anesthesia Complications: none Follow-up care needed: N/A Sherry Villegas MD May 11, 2018 19:35
--- NOTE | 2018-05-13 00:09 | Cardiology Report ---
APPROVED REPORT EKG Measurement Heart [id number] Normal sinus rhythm Left axis deviation RBBB Left ventricular hypertrophy with QRS widening Abnormal ECG
--- NOTE | 2018-05-15 09:36 | IOP Physician Progress Note ---
IOP Physician Progress Note Problem: other (specify) Description of Symptoms: The patient comes in, announcing the date, getting it wrong, checking it, getting upset, and correcting himself. He was in [facility] [facility] [employer] [facility] for GI upset. He says he is working on dealing with feelings, but has been away from the program for several weeks due to his GI problems. Diagnosis (1) Diarrhea [place] I: Schizoaffective disorder with anxiety and OCD [place]: II deferred [place]: III Gastrointestinal problems, [place]: IV sensitive to stressors [place]: V 31-40 Progress Since Last Eval: The patient remains constricted by his OCD defenses, and remains unaware of what they "protect" him from. Current Med Management: There are no plans to change. Home Meds: Active Scripts Ranitidine Hcl (ZANTAC) 300 Mg Tablet, 300 MG ORAL QHS, #30 TAB 0 Refills Prov:Mina Nix MD 05/11/18 Reported Medications Menthol/Camphor (SARNA ANTI-ITCH LOTION) 222 Ml Lotion, 222 ML TP, ML 05/10/18 Eucerin (Eucerin Creme) 57 Gm Cream..g., 1 APPLIC TOPIC BID PRN for , GM Apply to left forearm as needed 03/20/18 Loperamide Hcl (LOPERAMIDE) 2 Mg Tablet, 2 MG PO PRN for Diarrhea MDD 16MG 4MG then 2MG for each loose stool 03/20/18 Trolamine Salicylate/Aloe Vera (ASPERCREME 10% CREAM) 35.4 Gm Cream..g., 1 APPLIC TP TID PRN for Apply to affected area 3 times a day for 2 days, then repeat as needed 03/20/18 Mag Hydrox/Al Hydrox/Simeth* (ADVANCED ANTACID LIQUID*) 355 Ml Oral.susp, 30 ML ORAL QID PRN for Upset stomach 03/20/18 Cholecalciferol (Vitamin D3)* (VITAMIN D*) 1,000 Unit Tablet, 2000 UNITS ORAL DAILY 03/20/18 Benztropine Mesylate* (COGENTIN*) 0.5 Mg Tablet, 1 MG PO daily, TAB 11/25/17 Solifenacin Succinate* (VESICARE*) 5 Mg Tablet, 5 MG ORAL QPM 01/07/15 Paroxetine Hcl* (PAXIL*) 20 Mg Tablet, 40 MG PO DAILY 12/18/12 Aripiprazole* (ABILIFY*) 2 Mg Tablet, 2 MG ORAL DAILY, TAB 12/18/12 Calcium Carbonate (Calcium) 500 Mg Tab, 1000 MG ORAL QID PRN for Heartbearn 12/18/12 Pramoxine Hcl (SARNA SENSITIVE) 222 Ml Lotion, 1 APPLIC TP daily PRN for Itching 12/18/12 Loratadine (LORATADINE) 10 Mg Tablet, 10 MG PO daily PRN for allergies 12/18/12 Acetaminophen (Acetaminophen 8 Hour) 650 Mg Tablet, 650 MG ORAL Q3H PRN for For Pain 12/18/12 Magnesium Hydroxide* (MILK OF MAGNESIA*) 400 Mg/5 Ml Oral.susp, 2 TBS ORAL Q6H PRN for Constipation, ML 12/18/12 Clonazepam* (KLONOPIN*) 0.5 Mg Tablet, 0.25 MG ORAL bid 12/04/12 Trazodone Hcl* (DESYREL*) 50 Mg Tablet, 50 MG PO QHS 12/04/12 Tamsulosin HCl (Flomax) 0.4 Mg Cap, 0.4 MG ORAL QHS 12/04/12 Discontinued Reported Medications [mylanta] No Conflict Check 05/10/18 Naproxen Sodium (ALEVE) 220 Mg Capsule, 220 MG PO DAILY PRN for For Pain, CAP 05/10/18 Trolamine Salicylate/Aloe Vera (ASPERCREME 10% CREAM) 35.4 Gm Cream..g., 35.4 GM TP, GM 05/10/18 Guaifenesin/Dextromethorphan (ROBAFEN-DM SYRUP) 118 Ml Syrup, 10 ML PO bedtime, ML 03/20/18 Naproxen Sodium (ALEVE) 220 Mg Capsule, 220 MG PO DAILY PRN for Take 1 tab by mouth every day for 7 days, then repeat as needed 03/20/18 Ondansetron Hcl* (ZOFRAN*) 8 Mg Tablet, 8 MG ORAL Q8H PRN for Nausea & Vomiting 12/18/12 Diphenoxylate Hcl/Atropine (LOMOTIL TABLET) 1 Each Tablet, 2.5 MG ORAL TID PRN for Diarrhea 12/18/12 Desonide (DESONIDE) 59 Ml Lotion, 1 APPLIC TP daily PRN for Itching/Pruritis 12/18/12 Appearance: well groomed Affect: labile Mood: anxious Thought Process: no abnormalities, ruminations Thought Content: no abnormalities Suicidal/Homicidal Ideations: not present Risk Assessment: low risk at this time Cognition: no abnormalities Accomplishments before DC: Needs to work on affective control. Comments The physical problems are being addressed. Kieran Rodney MD May 15, 2018 09:36
--- NOTE | 2018-05-16 15:00 | Operative Note - Dictated ---
DATE OF OPERATION: 05/11/2018 PROCEDURE: Upper gastrointestinal endoscopy with biopsy as well as colonoscopy with biopsy and polypectomy. SURGEON: Anthony Godfrey M.D. ANESTHESIA: Please see the separate anesthesiologist notes for details. PREOPERATIVE DIAGNOSIS: Anemia with mild iron deficiency. POST-ENDOSCOPIC DIAGNOSES: 1. Mild proximal nonerosive gastritis. 2. Mild erosion at the gastroesophageal junction consistent with gastroesophageal reflux. 3. Normal terminal ileum. 4. Rare left-sided diverticulosis. 5. Polyp in the distal ascending colon, status post snare polypectomy. 6. Second polyp in the distal descending colon, status post biopsy removal. 7. Diminutive polyp in the rectum, status post cold snare polypectomy followed by biopsy. 8. Status post random biopsies of the duodenum, antrum, fundus, GE junction, midesophagus, terminal ileum, right colon, left colon, and rectum. DESCRIPTION OF PROCEDURE: The procedure, its risks, indications, alternatives, and possible complications including but not limited to bleeding, infection, perforation, , and anesthesia complications were explained to the patient's power of assistant district attorney, and informed consent was obtained. The patient was then sedated in the left lateral decubitus position. A diagnostic upper endoscope was introduced orally into the oropharynx and advanced to the duodenum without difficulty. The endoscope was then gradually withdrawn and the mucosa was examined carefully. Examination of the upper gastrointestinal mucosa revealed some mild erosive changes at the gastroesophageal junction consistent with mild gastroesophageal reflux. There is some degree of bile reflux and proximal nonerosive gastritis. The biopsies of the duodenum, antrum, proximal stomach, and the esophagus were sent to pathology for review. The endoscope was removed, and the buttock area and the rectal area were examined. The area of the skin breakdown seemed just over the coccyx, which was circular, small, but without any evidence of infection or discharge. The rectal exam was done, which was normal. The colonoscope was introduced into the rectum and advanced to the terminal ileum. The terminal ileal mucosa and the colonic lining mucosa did not show any evidence of colitis or ulcerations. In the proximal colon, there were 2 polyps in the distal ascending colon. One was removed with a hot snare polypectomy and the second with biopsy forceps. In the rectum, there was noted a diminutive polyp which was removed with a cold snare polypectomy. Random biopsies were sent to pathology for review. The colonoscope was removed. The patient was sent to recovery in good condition. COMPLICATIONS: None. RECOMMENDATIONS: 1. Resume oral diet. 2. Follow up biopsy results. 3. Outpatient followup. 4. Repeat colonoscopy in 5 years. Anthony Godfrey M.D. DR: Oscar JOB#: [id number] CC: TIO
== END 2018-05-11 17:51 | disposition home or self-care (01) | DRG 392 ==
LOC: EMR 08:17 → 4E 08:22 → EDBEDREQ 10:15
DX: K21.9 Gastro-esophageal reflux disease without esophagitis (principal); D64.9 Anemia, unspecified; K63.5 Polyp of colon; G31.84 Mild cognitive impairment of uncertain or unknown etiology; F41.8 Other specified anxiety disorders; F42.9 Obsessive-compulsive disorder, unspecified; E78.5 Hyperlipidemia, unspecified; I45.10 Unspecified right bundle-branch block; I44.1 Atrioventricular block, second degree; R26.9 Unspecified abnormalities of gait and mobility; D50.9 Iron deficiency anemia, unspecified; K29.70 Gastritis, unspecified, without bleeding; K57.90 Diverticulosis of intestine, part unspecified, without perforation or abscess without bleeding; L89.152 Pressure ulcer of sacral region, stage 2; K62.1 Rectal polyp; Z88.2 Allergy status to sulfonamides; N40.0 Benign prostatic hyperplasia without lower urinary tract symptoms; F32.9 Major depressive disorder, single episode, unspecified; F41.9 Anxiety disorder, unspecified
CPT/HCPCS: 36415; 80053; 81003; 83690; 85025; 85610; 85730; 87081; 93005; 94003; 94150; 99285